=== PATIENT | male | born 1960 | race Caucasian/White ===

== ENCOUNTER 2021-06-14 12:21 | Inpatient (IN) | payer OTHER ==
[~2021-06-14] VITALS: Ht 177.8 cm; Wt 122.0 kg
[~2021-06-14 12:21] MED LIST: BACTRIM D.S. TAB1 EA PO
[2021-06-14 12:58] LABS: HEMOGLOBIN 16.5 gm/dl (14.0-17.5); RED BLOOD COUNT 5.22 M/UL (4.20-5.50); WHITE BLOOD COUNT 7.4 K/UL (4.5-11.0)
[2021-06-14 13:26] LABS: BUN/CREATININE RATIO 13 (0-10)
[2021-06-15 07:11] LABS: HEMOGLOBIN 15.3 gm/dl (14.0-17.5); RED BLOOD COUNT 5.07 M/UL (4.20-5.50)
[2021-06-15 07:12] LABS: WHITE BLOOD COUNT 4.2 K/UL (4.5-11.0)
[2021-06-15 07:36] LABS: BUN/CREATININE RATIO 21 (0-10)
[2021-06-16 07:51] LABS: HEMOGLOBIN 15.2 gm/dl (14.0-17.5); RED BLOOD COUNT 5.08 M/UL (4.20-5.50)
[2021-06-16 07:52] LABS: WHITE BLOOD COUNT 6.3 K/UL (4.5-11.0)
[2021-06-16 08:20] LABS: BUN/CREATININE RATIO 27 (0-10)
[2021-06-17 08:12] LABS: BUN/CREATININE RATIO 25 (0-10)
[2021-06-17] MEDS ORDERED: NICOTINE PATCH1 EAC2 TD (11:51)
[2021-06-17] MEDS ORDERED: IPRAT-ALBUT 0.5-3 ML NEB (11:51)
[2021-06-17] MEDS ORDERED: CEFUROXIME500 MG PO (11:51)
[2021-06-17] MEDS ORDERED: DECADRON6 MG PO (11:51)
[2021-06-17] MEDS ORDERED: ELIQUIS 2.5 MG2.5 MG GT (11:51)
[2021-06-17] MEDS ORDERED: GLUCOPHAGE 500500 MG PO (11:51)
== END 2021-06-17 13:41 | disposition home or self-care (01) | DRG 177 ==
LOC: ER1 12:21 → PROG CARE 15:15 → CDU 15:15 → PROG CARE 21:01
PROVIDERS: Emergency Medicine; Internal Medicine; Internal Medicine Pulmonary Disease; Physician Assistant Medical; ADMIT Internal Medicine Infectious Disease
PROC: 8E0ZXY6 Isolation (ICD-10-PCS; principal; 2021-06-14)
PROC: 3E0333Z Introduction of Anti-inflammatory into Peripheral Vein, Percutaneous Approach (ICD-10-PCS; 2021-06-14)
PROC: XW033E5 Introduction of Remdesivir Anti-infective into Peripheral Vein, Percutaneous Approach, New Technology Group 5 (ICD-10-PCS; 2021-06-14)
PROC: XW033H5 Introduction of Tocilizumab into Peripheral Vein, Percutaneous Approach, New Technology Group 5 (ICD-10-PCS; 2021-06-14)
PROC: 5A0935A Assistance with Respiratory Ventilation, Less than 24 Consecutive Hours, High Flow/Velocity Cannula (ICD-10-PCS; 2021-06-14)
PROC: 5A0945A Assistance with Respiratory Ventilation, 24-96 Consecutive Hours, High Flow/Velocity Cannula (ICD-10-PCS; 2021-06-16)
DX: U07.1 COVID-19 (principal); J12.82 Pneumonia due to coronavirus disease 2019; J80 Acute respiratory distress syndrome; A41.9 Sepsis, unspecified organism; J18.9 Pneumonia, unspecified organism; E87.1 Hypo-osmolality and hyponatremia; J44.0 Chronic obstructive pulmonary disease with (acute) lower respiratory infection; J44.1 Chronic obstructive pulmonary disease with (acute) exacerbation; E66.9 Obesity, unspecified; E11.65 Type 2 diabetes mellitus with hyperglycemia; E86.0 Dehydration; F15.10 Other stimulant abuse, uncomplicated; F17.210 Nicotine dependence, cigarettes, uncomplicated; Z83.3 Family history of diabetes mellitus; Z79.4 Long term (current) use of insulin; Z79.899 Other long term (current) drug therapy; Z23 Encounter for immunization; Z68.38 Body mass index [BMI] 38.0-38.9, adult
CPT/HCPCS: 0240U; 36600; 71045; 80048; 80053; 82550; 82553; 82728; 82803; 82962; 83036; 83605; 83735; 83874; 83880; 84484; 85025; 85027; 85379; 86140; 87040; 93005; 94640; 94760; 96374; 96375; 99285; J0248; J0696; J1100; J1650; J2405; J7030; Q0249; Q9967

== ENCOUNTER 2021-09-25 17:08 | Emergency (ER) | payer OTHER ==
[~2021-09-25 17:08] MED LIST changes: +CEFUROXIME500 MG PO; +DECADRON6 MG PO; +ELIQUIS 2.5 MG2.5 MG GT; +GLUCOPHAGE 500500 MG PO; +IPRAT-ALBUT 0.5-3 ML NEB; +NICOTINE PATCH1 EAC2 TD
[2021-09-25 19:52] LABS: CORONAVIRUS HKU1 Not Detected (Not Detectd); CORONAVIRUS NL63 Not Detected (Not Detectd); CORONAVIRUS OC43 Not Detected (Not Detectd); CORONOAVIRUS 229E Not Detected (Not Detectd); HUMAN METAPNEUMOVIRUS Not Detected (Not Detectd); HUMAN RHINOVIRUS/ENTEROVIRUS Not Detected (Not Detectd); INFLUENZA A Not Detected (Not Detectd); INFLUENZA B Not Detected (Not Detectd); PARAINFLUENZA VIRUS 1 Not Detected (Not Detectd); PARAINFLUENZA VIRUS 2 Not Detected (Not Detectd)
[2021-09-25 19:53] LABS: BORDETELLA PARAPERTUSSIS Not Detected (Not Detectd); BORDETELLA PERTUSSIS Not Detected (Not Detectd); CHLAMYDIA PNEUMONIAE Not Detected (Not Detectd); MYCOPLASMA PNEUMONIAE Not Detected (Not Detectd); PARAINFLUENZA VIRUS 4 Not Detected (Not Detectd); RESPIRATORY SYNCYTIAL VIRUS Not Detected (Not Detectd)
[2021-09-25 20:41] LABS: HEMOGLOBIN 16.7 gm/dl (14.0-17.5); RED BLOOD COUNT 5.25 M/UL (4.20-5.50); WHITE BLOOD COUNT 6.1 K/UL (4.5-11.0)
[2021-09-25 21:03] LABS: SARS-CoV-2 NOT DETECTED (Not Detectd)
[2021-09-25 21:04] LABS: PARAINFLUENZA VIRUS 3 DETECTED (Not Detectd)
[2021-09-25 21:05] LABS: BUN/CREATININE RATIO 12 (0-10)
[2021-09-25] MEDS ORDERED: BENZONATATE200 MG PO (21:31)
[2021-09-25] MEDS ORDERED: MEDROL4 MG PO (21:31)
[2021-09-25] MEDS ORDERED: POTASSIUM CHLO20 ME1 PO (21:31)
[2021-09-25] MEDS ORDERED: CEFUROXIME500 MG PO (21:31)
== END 2021-09-25 21:40 | disposition left against medical advice (07) ==
LOC: ER1 17:08
PROVIDERS: Preventive Medicine Occupational Medicine
DX: B34.8 Other viral infections of unspecified site (principal); E87.6 Hypokalemia; Z20.822 Contact with and (suspected) exposure to COVID-19
CPT/HCPCS: 36600; 71045; 80053; 82550; 82553; 82803; 83605; 83690; 83880; 84484; 85025; 85652; 86140; 87040; 87633; 93005; 94664; 96374; 96375; 99284; J0696; J2930; J7030